=== PATIENT | male | born 1970 | race Caucasian/White ===

== ENCOUNTER 2018-11-14 21:11 | Emergency (ER) | payer BC ==
--- NOTE | 2018-11-14 21:37 | EDM.PDOC ---
ED HPI GENERAL MEDICAL PROBLEM - General Chief Complaint: Upper Extremity Injury/Pain Stated Complaint: BLOOD CLOT Time Seen by Provider: 11/14/18 21:25 Source of Information: Reports: Patient History Limitations: Reports: No Limitations - History of Present Illness INITIAL COMMENTS - FREE TEXT/NARRATIVE: c/o pain at L wrist x 24h pt works nights, last worked 2 nights ago, will work again tomorrow night, lifts boxes R handed, developed pain and swelling at L wrist, no known injury had put on an Bhaskar today, now has some swell and thinks he may have a blood clot , no previous h/o blood clots left hand Pain Score (Numeric/FACES): 4 - Related Data Allergies Allergy/AdvReac Type Severity Reaction Status Date / Time No Known Allergies Allergy Verified 11/14/18 21:20 Home Meds: Home Meds Colchicine 0.6 mg PO BID #10 capsule 11/14/18 [Rx] hydroCHLOROthiazide [Hydrochlorothiazide] 25 mg PO DAILY 11/14/18 [History] predniSONE 20 mg PO DAILY #8 tab 11/14/18 [Rx] Past Medical History HEENT History: Reports: Impaired Vision Cardiovascular History: Reports: Hypertension - Past Surgical History HEENT Surgical History: Reports: None Social & Family History - Tobacco Use Smoking Status *Q: Former Smoker Years of Tobacco use: 5 Used Tobacco, but Quit: Yes Month/Year Tobacco Last Used: 1991 Second Hand Smoke Exposure: No - Caffeine Use Caffeine Use: Reports: Soda - Recreational Drug Use Recreational Drug Use: No Review of Systems - Review of Systems Review Of Systems: See Below Constitutional: Reports: No Symptoms Eyes: Reports: No Symptoms Ears: Reports: No Symptoms Nose: Reports: No Symptoms Mouth/Throat: Reports: No Symptoms Respiratory: Reports: No Symptoms Cardiovascular: Reports: No Symptoms GI/Abdominal: Reports: No Symptoms Genitourinary: Reports: No Symptoms Musculoskeletal: Reports: Other (left wrist pain) Skin: Reports: No Symptoms Neurological: Reports: No Symptoms Psychiatric: Reports: No Symptoms ED EXAM, GENERAL - Physical Exam Exam: See Below Exam Limited By: No Limitations General Appearance: Alert, WD/WN, No Apparent Distress Extremities: Other (1-2+ tender at L navicular, less tender in immediate vicinity, slight tender of distal 10 cm of forearm 1+ edema of distal 20 cm of forearm c/w compression from Bhaskar, little to no swell of fingers and hand and wrist on L) Course - Vital Signs Last Recorded V/S: Last Vital Signs Temp 36.4 C 11/14/18 22:44 Pulse 68 11/14/18 22:44 Resp 16 11/14/18 22:44 BP 152/85 H 11/14/18 22:44 Pulse Ox 98 11/14/18 22:44 - Orders/Labs/Meds Orders: Active Orders 24 hr Category Date Time Status Wrist Comp Min 3V Lt [CR] Stat Exams 11/14/18 21:32 Ordered Labs: Laboratory Tests 11/14/18 11/14/18 11/14/18 Range/Units 21:40 21:40 21:40 WBC 8.6 (4.5-12.0) X10-3/uL RBC 5.35 (4.30-5.75) x10(6)uL Hgb 15.1 (13.5-17.8) g/dL Hct 43.0 (30.0-51.3) % MCV 80.4 (80-96) fL MCH 28.3 (27.7-33.6) pg MCHC 35.2 (32.2-35.4) g/dL RDW 12.9 (11.5-15.5) % Plt Count 229 (125-369) X10(3)uL MPV 8.9 (7.4-10.4) fL Neut % (Auto) 59.0 (46-82) % Lymph % (Auto) 30.8 (13-37) % [place] % (Auto) 6.4 (4-12) % Eos % (Auto) 3 (1.0-5.0) % Baso % (Auto) 1 (0-2) % Neut # (Auto) 5.0 (1.6-8.3) # Lymph # (Auto) 2.6 (0.6-5.0) # [place] # (Auto) 0.6 (0.0-1.3) # Eos # (Auto) 0.3 (0.0-0.8) # Baso # (Auto) 0.1 (0.0-0.2) # D-Dimer, Quantitative (0.0-0.59) mg/LFEU Sodium (135-145) mmol/L Potassium (3.5-5.3) mmol/L Chloride (100-110) mmol/L Carbon Dioxide (21-32) mmol/L BUN (7-18) mg/dL Creatinine (0.70-1.30) mg/dL Est Cr Clr Drug Dosing mL/min Estimated GFR (MDRD) (>60) BUN/Creatinine Ratio (9-20) Glucose (80-116) mg/dL Uric Acid 9.3 H* (2.6-6.0) mg/dL Calcium (8.6-10.2) mg/dL Total Bilirubin (0.1-1.3) mg/dL AST (5-25) IU/L ALT (12-36) U/L Alkaline Phosphatase (56-112) IU/L C-Reactive Protein 0.9 (0.5-0.9) mg/dL Total Protein (6.0-8.0) g/dL Albumin (3.5-5.2) g/dL Globulin g/dL Albumin/Globulin Ratio 11/14/18 11/14/18 Range/Units 21:40 21:40 WBC (4.5-12.0) X10-3/uL RBC (4.30-5.75) x10(6)uL Hgb (13.5-17.8) g/dL Hct (30.0-51.3) % MCV (80-96) fL MCH (27.7-33.6) pg MCHC (32.2-35.4) g/dL RDW (11.5-15.5) % Plt Count (125-369) X10(3)uL MPV (7.4-10.4) fL Neut % (Auto) (46-82) % Lymph % (Auto) (13-37) % [place] % (Auto) (4-12) % Eos % (Auto) (1.0-5.0) % Baso % (Auto) (0-2) % Neut # (Auto) (1.6-8.3) # Lymph # (Auto) (0.6-5.0) # [place] # (Auto) (0.0-1.3) # Eos # (Auto) (0.0-0.8) # Baso # (Auto) (0.0-0.2) # D-Dimer, Quantitative 0.57 (0.0-0.59) mg/LFEU Sodium 140 (135-145) mmol/L Potassium 3.4 L (3.5-5.3) mmol/L Chloride 101 (100-110) mmol/L Carbon Dioxide 28 (21-32) mmol/L BUN 14 (7-18) mg/dL Creatinine 0.9 (0.70-1.30) mg/dL Est Cr Clr Drug Dosing 112.21 mL/min Estimated GFR (MDRD) > 60 (>60) BUN/Creatinine Ratio 15.6 (9-20) Glucose 195 H (80-116) mg/dL Uric Acid (2.6-6.0) mg/dL Calcium 8.5 L (8.6-10.2) mg/dL Total Bilirubin 0.5 (0.1-1.3) mg/dL AST 28 H (5-25) IU/L ALT 49 H (12-36) U/L Alkaline Phosphatase 101 (56-112) IU/L C-Reactive Protein (0.5-0.9) mg/dL Total Protein 7.2 (6.0-8.0) g/dL Albumin 3.7 (3.5-5.2) g/dL Globulin 3.5 g/dL Albumin/Globulin Ratio 1.1 Meds: Medications Discontinued Medications Generic Name Dose Route Start Last Admin Trade Name Kenia PRN Reason Stop Dose Admin Colchicine 0.6 mg 11/14/18 22:37 11/14/18 22:51 Colcrys PO 11/14/18 22:38 0.6 mg ONETIME ONE Administration Ketorolac Tromethamine 60 mg 11/14/18 21:32 11/14/18 21:50 Toradol IM 11/14/18 21:33 Not Given ONETIME ONE Prednisone 40 mg 11/14/18 22:34 11/14/18 22:51 Prednisone PO 11/14/18 22:35 40 mg ONETIME ONE Administration - Re-Assessments/Exams Free Text/Narrative Re-Assessment/Exam: 11/14/18 23:36 labs and hx and PE are c/w gout of L wrist, pt reports that he had pain in his L great toe x 2d last week glu 195, pt says he has IGT, pt informed that he is now in the DM range mild inc'd LFTs suspect he should respond well to meds 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 Departure - Departure Time of Disposition: 23:24 Disposition: Home, Self-Care 01 Condition: Good Clinical Impression: Gout, Hyperglycemia, Hypokalemia, Elevated liver function tests, Hyperuricemia - Discharge Information *PRESCRIPTION DRUG MONITORING PROGRAM REVIEWED*: Not Applicable *COPY OF PRESCRIPTION DRUG MONITORING REPORT IN PATIENT YASMEEN: Not Applicable Prescriptions: Colchicine 0.6 mg PO BID #10 capsule predniSONE 20 mg PO DAILY #8 tab Instructions: Gout, Liver Function Tests Referrals: Jalen Ayon MD [Primary Care Provider] - Forms: ED Department Discharge Additional Instructions: For gout, take colchicine 0.6 mg 1 tab 2 times a da for 5 days. For gout, take prednisone 20 mg 2 tabs tomorrow, then 1 tab daily for 6 more days. For gout, take ibuprofen 200 mg 4 tabs and acetaminophen 500 mg 2 tabs 3 times a day for 7 days. Use wrist splint when out of bed for the next 2 days, longer if needed. May work tomorrow evening if you are feeling much better. See Dr Ayon in 3-4 days for further recommendations. In addition to the gout, you will want to discuss with him your high glucose ( blood sugar) and elevated liver tests. Return to ED if you are feeling worse. - My Orders Last 24 Hours: My Active Orders 11/14/18 21:32 Wrist Comp Min 3V Lt [CR] Stat - Assessment/Plan Last 24 Hours: My Active Orders 11/14/18 21:32 Wrist Comp Min 3V Lt [CR] Stat
[2018-11-14] MEDS: Ketorolac 60 MG/2 ML SDV IM ONE ×2 (21:42→21:50)
[2018-11-14] MEDS ORDERED: predniSONE 20 MG Tab PO ONE (22:34)
[2018-11-14] MEDS ORDERED: Colchicine 0.6 MG Tab PO ONE (22:37)
[2018-11-14 22:45] VITALS: BP 152/85
[2018-11-14] MEDS ORDERED: Potassium Chloride 20 MEQ Tab.ER PO ONE (23:24)
--- NOTE | 2018-11-15 10:53 | CR ---
INDICATION: Pain at navicular bone, no injury. LEFT WRIST: Three views of the left wrist revealed mild degenerative changes at the navicular multangular joints. Degenerative changes are also noted of mild degree at the first metacarpocarpal joint. On the lateral view, there is a small bony density along the dorsum of the carpus, which may represent an ununited chip fracture fragment off the triquetrum, likely old, since it appears to be corticated. A definite acute fracture or dislocation was not identified. Overall bone density appeared to be normal. There is a low density area in the capitellum, which may represent a benign bone cyst with a thin sclerotic rim. As felt to be clinically necessary, nuclear bone imaging with 3-phase technique or MRI of the wrist may be helpful for further evaluation of this finding. KELLYD
== END 2018-11-14 23:44 | disposition home or self-care (01) ==
LOC: FB.ED 21:11
DX: M10.9 Gout, unspecified (principal); E11.65 Type 2 diabetes mellitus with hyperglycemia; E87.6 Hypokalemia; I10 Essential (primary) hypertension; R79.89 Other specified abnormal findings of blood chemistry; Z79.899 Other long term (current) drug therapy; Z87.891 Personal history of nicotine dependence
CPT/HCPCS: 36415; 73110; 80053; 84550; 85025; 85379; 86140; 99283; A9270; J1885

== ENCOUNTER 2021-12-06 02:10 | Emergency (ER) | payer BC ==
[2021-12-06 02:23] VITALS: BP 171/88; PULSE 59
[2021-12-06] MEDS ORDERED: Magnesium Citrate Solution 296 ML Bottle ONE (02:48)
== END 2021-12-06 03:00 | disposition home or self-care (01) ==
LOC: FB.ED 02:10
DX: K64.4 Residual hemorrhoidal skin tags (principal); L30.8 Other specified dermatitis; K59.00 Constipation, unspecified; I10 Essential (primary) hypertension; Z79.899 Other long term (current) drug therapy
CPT/HCPCS: 99283; A9270-GY